=== PATIENT | female | born 1965 | race Hispanic/Latino ===

== ENCOUNTER 2017-05-25 08:00 | Outpatient (CLI) | payer OTHER ==
--- NOTE | 2017-05-27 08:42 | Cat Scan Report ---
CT CHEST WITH CONTRAST: 05/25/17 08:00:00 CLINICAL: Mediastinal mass versus cyst identified on calcium scoring CT. COMPARISON: 05/06/17 CT heart with calcium score. TECHNIQUE: Volumetric acquisition and 1.25 mm scan reconstructions after the uneventful intravenous injection of 100cc Omnipaque 300. Consent was obtained prior to the administration of contrast. FINDINGS: A hypodense relatively smooth retrocaval and retroaortic pretracheal mass measures 4.2 cm transverse dimension by 2.8 cm AP dimension by 4.1 cm craniocaudal dimension. It demonstrates no appreciable enhancement and compared to the prior exam. It measures approximately 13 Hounsfield units in density. No other mass and no hilar lymphadenopathy.The lungs are clear except for very mild bilateral lower lobe peripheral intralobular septal thickening. No airspace disease or pleural effusion. Normal heart, aorta and pulmonary arteries. Normal thyroid, trachea and esophagus. No axillary or supraclavicular lymphadenopathy. Small bilateral axillary lymph nodes. At 10 x 9 mm left upper inner quadrant breast mass has a mild irregular contour. The upper abdomen is remarkable for a 1.1 cm right hepatic benign cavernous hemangioma and a 7 mm hypodensity in the medial segment of the left hepatic lobe which is probably a benign cyst or hemangioma. Status post cholecystectomy. IMPRESSION: 1. Benign mediastinal cyst versus trapped fluid in a pericardial recess. Recommend CT followup six months. 2. Very mild bilateral lower lobe scarring. 3. A 1 cm left upper inner quadrant breast mass requiring additional imaging. Recommend a bilateral diagnostic mammogram and left breast ultrasound for further evaluation. 4. A 1 cm right hepatic benign cavernous hemangioma in a probably benign 7 mm left medial segment cyst or benign hemangioma.
== END 2017-05-25 08:01 | disposition home or self-care (01) ==
LOC: SPVIMAG 08:00
PROVIDERS: ATTEND Specialist
DX: J39.8 Other specified diseases of upper respiratory tract (principal); J98.4 Other disorders of lung; D18.09 Hemangioma of other sites; N63 Unspecified lump in breast; Z90.49 Acquired absence of other specified parts of digestive tract
CPT/HCPCS: 71260; Q9967